=== PATIENT | female | born 1965 | race Asian ===

== ENCOUNTER 2017-01-25 08:30 | Outpatient (CLI) | payer BC | END 2017-01-25 11:00 | disposition home or self-care (01) | LOC: INF 08:30 | PROC: 30233N1 Transfusion of Nonautologous Red Blood Cells into Peripheral Vein, Percutaneous Approach (ICD-10-PCS; principal; 2017-01-25) | DX: D50.8 Other iron deficiency anemias (principal) | CPT/HCPCS: 36415; 36430; 85014; 85018; 86850; 86900; 86901; 86922; P9016 ==

== ENCOUNTER 2017-01-28 12:10 | Observation (INO) | payer BC ==
[~2017-01-28] VITALS: Ht 172.7 cm; Wt 110.2 kg
[2017-01-28 13:34] LABS: PLATELET COUNT 438 K/uL (152-353)
[2017-01-28 14:02] LABS: POTASSIUM 3.5 mmol/L (3.6-5.2); SODIUM 136 mmol/L (136-145)
[2017-01-28 14:14] LABS: PARTIAL THROMBOPLASTIN TIME 26.3 SECONDS (24.5-33.6)
[2017-01-28 16:40] VITALS: BP 173/97; TEMP 98.1; Ht 172.7 cm; Wt 110.2 kg
--- NOTE | 2017-01-28 17:21 | NUR ---
DR BEACH IN ROOM TALKING WITH PT AT THIS TIME.
[2017-01-28] MEDS ORDERED: FORTAMET500 MG PO (17:24)
[2017-01-28] MEDS ORDERED: CLARITIN10 MG PO (17:26)
[2017-01-28 20:00] VITALS: BP 138/86; TEMP 98.3
--- NOTE | 2017-01-28 23:32 | NUR ---
01/28/17 5666 PT C/O OF NAUSEA AFTER EATING SOME SOUP MEDICATION GIVEN ALONG WITH DIET COKE.NO VOMITING NOTED.CC
[2017-01-29] VITALS: BP 134/72; TEMP 98.1
[2017-01-29 04:00] VITALS: BP 123/72; TEMP 98.4
[2017-01-29 05:35] LABS: PLATELET COUNT 410 K/uL (152-353)
[2017-01-29 05:57] LABS: POTASSIUM 3.9 mmol/L (3.6-5.2); SODIUM 136 mmol/L (136-145)
[2017-01-29 08:00] VITALS: BP 141/73; TEMP 97.7
--- NOTE | 2017-01-29 09:45 | NUR ---
D/C ORDERS RECIEVED. IV D/C'D. TELE D/C'D. DUKE FROM DR. PALACIOS'S OFFICE IS GOING TO SET UP OUT-PATIENT PROCEDURES. D/C INSTRUCTIONS GIVEN. PT HAS NO FUTHER QUESTIONS.
--- NOTE | 2017-01-29 10:40 | NUR ---
PT AMBULATED OUT AT THIS TIME. NO PROBLEMS NOTED.
== END 2017-01-29 10:34 | disposition home or self-care (01) ==
LOC: MED/SURG 12:10
PROVIDERS: ADMIT Family Medicine
DX: R07.89 Other chest pain (principal); R06.02 Shortness of breath; D50.9 Iron deficiency anemia, unspecified; R94.31 Abnormal electrocardiogram [ECG] [EKG]
CPT/HCPCS: 36415; 36591; 80053; 82550; 82948; 83735; 84484; 85027; 85610; 85730; 93005; 94760; 96365; 96366; 96372; 99220; G0378; G0379; J1650

== ENCOUNTER 2017-02-14 07:59 | Outpatient (CLI) | payer BC ==
[~2017-02-14] VITALS: Ht 172.7 cm; Wt 109.8 kg
[~2017-02-14 07:59] MED LIST: CLARITIN10 MG PO; FORTAMET500 MG PO
[2017-02-14 08:15] VITALS: BP 167/100; TEMP 98.2
[2017-02-14 10:45] VITALS: BP 152/90; TEMP 98.2
== END 2017-02-14 10:45 | disposition home or self-care (01) ==
LOC: INF 07:59
DX: D64.89 Other specified anemias (principal)
CPT/HCPCS: 96365; Q0138

== ENCOUNTER 2017-02-21 16:08 | Outpatient (CLI) | payer BC ==
[~2017-02-21] VITALS: Ht 172.7 cm; Wt 109.8 kg
== END 2017-02-21 19:10 | disposition home or self-care (01) ==
LOC: INF 16:08
DX: D64.89 Other specified anemias (principal)
CPT/HCPCS: 96365; Q0138